=== PATIENT | male | born 1985 | race African-American/Black ===

== ENCOUNTER 2018-04-20 02:19 | Emergency (ER) | payer OTHER ==
[~2018-04-20] VITALS: Ht 193 cm; Wt 147.4 kg
[2018-04-20 02:35] VITALS: BP 137/59
--- NOTE | 2018-04-20 02:47 | ED HAND/WRIST INJURY COMPLAINT ---
History of Present Illness General Chief Complaint: Suture Removal/Wound Recheck Stated Complaint: PT HERE FOR SUTURE REMOVAL FROM RT HAND Source: patient Exam Limitations: no limitations Vital Signs & Intake/Output Vital Signs & Intake/Output Vital Signs Date Time Temp Pulse Resp B/P B/P Pulse O2 O2 Flow FiO2 Mean Ox Delivery Rate 04/20 0235 96.4 78 16 137/59 96 Allergies Coded Allergies: shellfish derived (Intermediate, THROAT CLOSURE 04/12/18) Triage Note: 33YO MALE TO TRIAGE REQUESTING SUTURES BE REMOVED FROM R THUMB THAT WERE INSERTED LAST THURSDAY Triage Nurses Notes Reviewed? yes Occurred: last week Duration: week(s): Timing: recent history Injury Environment: home Severity: mild Context: laceration HPI: 33 yo gentleman presents with right thumb laceration last week, here for suture removal. He notes that his finger healed well, without problem. He is otherwise well. Past History Travel History Traveled to [place] past 21 day No Medical History Any Pertinent Medical History? see below for history Neurological: NONE EENT: NONE Cardiovascular: NONE Respiratory: NONE Gastrointestinal: NONE Hepatic: NONE Renal: NONE Musculoskeletal: NONE Psychiatric: NONE Endocrine: NONE Blood Disorders: NONE Cancer(s): NONE Tetanus Vaccine: 07/07/12 Surgical History Surgical History: non-contributory Psychosocial History What is your primary language Martiniquais Tobacco Use: Never used Family History Hx Contributory? No Review of Systems Review of Systems Constitutional: Reports: no symptoms. EENTM: Reports: no symptoms. Respiratory: Reports: no symptoms. Cardiovascular: Reports: no symptoms. GI: Reports: no symptoms. Genitourinary: Reports: no symptoms. Musculoskeletal: Reports: no symptoms. Skin: Reports: no symptoms. Neurological/Psychological: Reports: no symptoms. Hematologic/Endocrine: Reports: no symptoms. Immunologic/Allergic: Reports: no symptoms. All Other Systems: Reviewed and Negative Physical Exam Physical Exam General Appearance: well developed/nourished, no apparent distress Head: atraumatic, normal appearance Eyes: Bilateral: normal appearance. Cardiovascular/Respiratory: no respiratory distress Hand Left: normal inspection Hand Right: 2 sutures left intact, well healed 2cm laceration near base of thumb Progress Differential Diagnosis: laceration... suture removal Plan of Care: sutures removed... pt left prior to signing discharge forms. Departure Departure Disposition: HOME OR SELF CARE Condition: Stable Clinical Impression Primary Impression: Visit for suture removal Referrals: Thuy MCNEAL,Alex Glaser (PCP/Family) Departure Forms: Customer Survey General Discharge Information Comments sutures removed without problem.
== END 2018-04-20 02:58 ==
LOC: ERH 02:19
DX: Z48.02 Encounter for removal of sutures (principal)